=== PATIENT | female | born 1965 | race Caucasian/White ===

== ENCOUNTER 2019-03-09 20:26 | Inpatient (IN) | payer MEDICAID ==
[~2019-03-09] VITALS: Ht 160 cm; Wt 101.7 kg
--- NOTE | 2019-03-09 20:44 | PHYS DOC ---
Past Medical History Past Medical History: Diabetes-Type II, Hypertension, Hypothyroid, Other Additional Past Medical Histor: LUPUS, PTSD Past Surgical History: , Hysterectomy, Other Additional Past Surgical Histo: LUMPECTOMY, PORTS Alcohol Use: Occasionally Drug Use: None Adult General HPI HPI Patient is a 53 year old female who presents with chest pain that started in 1900 the mid chest and radiates to the back. Patient states she also feels some pain in the left arm that goes down to the elbow. She's had 324 of aspirin and took one nitroglycerin with no relief. Patient states that nitroglycerin does not work on her anyway. Patient states she's also nausea needed. She states that earlier today she had exertional shortness of air but not currently short of air sitting in the bed. Patient rates her pain 8 out of 10. Patient has a history of for heart attacks, 7 stents, hypertension, high cholesterol, smoker but states that she has not smoked for 2 weeks, COPD, lupus, diabetes. Patient denies diaphoresis, headache, dizziness, visual changes, numbness or tingling, syncope, vomiting, diarrhea, fever, abdominal pain. Review of Systems Review of Systems Respiratory: Denies cough. Exertional shortness of breath [] Cardiovascular: Mid chest pain that radiates to the back GI: Denies abdominal pain. + nausea, denies vomiting, bloody stools or diarrhea [] All other systems were reviewed and found to be within normal limits, except as documented in this note. Current Medications Current Medications Current Medications Medications (Trade) Dose Ordered Sig/[facility] Start Time Stop Time Status Last Admin Dose Admin Morphine Sulfate (Morphine Sulfate) 4 mg 1X ONCE 03/09/19 22:00 03/09/19 22:01 DC 03/09/19 22:12 4 MG Ondansetron HCl (Zofran Odt) 4 mg 1X ONCE 03/09/19 22:00 03/09/19 22:01 DC 03/09/19 22:11 4 MG Ondansetron HCl (Zofran) 4 mg 1X ONCE 03/09/19 20:45 03/09/19 21:50 DC Allergies Allergies Allergies Coded Allergies Type Severity Reaction Last Updated Verified Tetracyclines Allergy Intermediate 10/01/13 No ketorolac Allergy Intermediate 10/01/13 No tramadol Allergy Intermediate 10/01/13 No Physical Exam Physical Exam Constitutional: Well developed, well nourished, no acute distress, non-toxic appearance. [] HENT: Normocephalic, atraumatic, bilateral external ears normal, oropharynx moist, no oral exudates, nose normal. [] Eyes: PERRLA, EOMI, conjunctiva normal, no discharge. [] Neck: Normal range of motion, no tenderness, supple, no stridor. [] Cardiovascular:Heart rate regular tachy rhythm, no murmur [] Lungs & Thorax: Bilateral upper breath sounds clear and lower diminished to auscultation [] Abdomen: Bowel sounds normal, soft, no tenderness, no masses, no pulsatile masses. [] Skin: Warm, dry, no erythema, no rash. [] Back: No tenderness, no CVA tenderness. [] Extremities: No tenderness, no cyanosis, no clubbing, ROM intact, no edema. [] Neurologic: Alert and oriented X 3, normal motor function, normal sensory function, no focal deficits noted. [] Psychologic: Affect normal, judgement normal, mood normal. [] Current Patient Data Vital Signs Vital Signs Date Time Temp Pulse Resp B/P (MAP) Pulse Ox O2 Delivery O2 Flow Rate FiO2 03/09/19 22:12 20 99 Room Air 03/09/19 20:30 97.3 84 143/94 (110) 97.3 Lab Values Laboratory Tests Test 03/09/19 20:55 White Blood Count 8.9 x10^3/uL (4.0-11.0) Red Blood Count 4.46 x10^6/uL (3.50-5.40) Hemoglobin 14.8 g/dL (12.0-15.5) Hematocrit 43.5 % (36.0-47.0) Mean Corpuscular Volume 98 fL (79-100) Mean Corpuscular Hemoglobin 33 pg (25-35) Mean Corpuscular Hemoglobin Concent 34 g/dL (31-37) Red Cell Distribution Width 14.8 % (11.5-14.5) H Platelet Count 151 x10^3/uL (140-400) Neutrophils (%) (Auto) 79 % (31-73) H Lymphocytes (%) (Auto) 15 % (24-48) L Monocytes (%) (Auto) 5 % (0-9) Eosinophils (%) (Auto) 1 % (0-3) Basophils (%) (Auto) 0 % (0-3) Neutrophils # (Auto) 7.1 x10^3/uL (1.8-7.7) Lymphocytes # (Auto) 1.4 x10^3/uL (1.0-4.8) Monocytes # (Auto) 0.4 x10^3/uL (0.0-1.1) Eosinophils # (Auto) 0.0 x10^3/uL (0.0-0.7) Basophils # (Auto) 0.0 x10^3/uL (0.0-0.2) Prothrombin Time 12.8 SEC (11.7-14.0) Prothrombin Time INR 1.0 (0.8-1.1) Sodium Level 138 mmol/L (136-145) Potassium Level 4.6 mmol/L (3.5-5.1) Chloride Level 102 mmol/L (98-107) Carbon Dioxide Level 25 mmol/L (21-32) Anion Gap 11 (6-14) Blood Urea Nitrogen 11 mg/dL (7-20) Creatinine 1.0 mg/dL (0.6-1.0) Estimated GFR (Cockcroft-Gault) 57.6 BUN/Creatinine Ratio 11 (6-20) Glucose Level 358 mg/dL (70-99) H Calcium Level 10.1 mg/dL (8.5-10.1) Total Bilirubin 0.6 mg/dL (0.2-1.0) Aspartate Amino Transferase (AST) 70 U/L (15-37) H Alanine Aminotransferase (ALT) 77 U/L (14-59) H Alkaline Phosphatase 159 U/L (46-116) H Troponin I Quantitative < 0.017 ng/mL (0.000-0.055) LH-Nru-A-Type Natriuretic Peptide 195 pg/mL (0-124) H Total Protein 7.5 g/dL (6.4-8.2) Albumin 3.6 g/dL (3.4-5.0) Albumin/Globulin Ratio 0.9 (1.0-1.7) L Laboratory Tests 03/09/19 20:55 Laboratory Tests 03/09/19 20:55 EKG EKG Sinus tach without STEMI[] Interpretation Time: [address] Arriola Radiology/Procedures Radiology/Procedures [] Impressions: [facility] [address] [place] [address] IMAGING REPORT Signed PATIENT: DOMINICK HURLEY ACCOUNT: [id number] : 1965 LOCATION: ER AGE: 53 SEX: F EXAM STATUS: PRE ER ORD. PHYSICIAN: DEWEY SAUCEDO APRN REASON: chest pain PROCEDURE: CHEST PA & LATERAL CHEST PA LATERAL History: Chest pain Comparison: None. Findings: No consolidation or pleural effusion. Normal heart size. No pneumothorax. Calcified right lower lung nodule, likely prior granulomatous disease. Impression: 1. No acute cardiopulmonary process. Electronically signed by: Chasidy Dunaway DO (03/09/2019 9:24 PM) [facility] DICTATED and SIGNED BY: CHASIDY DUNAWAY DO DATE: 03/09/192123 Course & Med Decision Making Course & Med Decision Making Alert and oriented. Speaks in full clear sentences. Skin pink warm and dry. EKG shows sinus tachycardia without STEMI. Abdomen soft and nontender. PERRLA. Lungs are clear in all sensation in all upper lobes but diminished in lower lobes. No extremity edema. Chest pain is not reproducible with palpation. Due tothe patients hx she will be admitted to the hospital. I have spoken to Dr Meade for admission. Dragon Disclaimer Dragon Disclaimer This electronic medical record was generated, in whole or in part, using a voice recognition dictation system. The HEART Score for CP Pts HEART Score for Chest Pain: HEART Score for Chest Pain Response (Comments) Value History Moderately Suspicious 1 ECG Normal 0 Age >45 - < 65 1 Risk Factors >3 Risk Factors or Hx CAD 2 Troponin < Normal Limit 0 Total 4 Risk Factors: Risk Factors: DM, Current or recent (<one month) smoker, HTN, HLP, family history of CAD, obesity. Risk Scores: Score 0 - 3: 2.5% MACE over next 6 weeks - Discharge Home Score 4 - 6: 20.3% MACE over next 6 weeks - Admit for Clinical Observation Score 7 - 10: 72.7% MACE over next 6 weeks - Early Invasive Strategies Departure Departure Impression: Primary Impression: Chest pain Disposition: ADMITTED INPATIENT Admitting Physician: HIMS Condition: STABLE Referrals: NO PCP (PCP) Problem Qualifiers Primary Impression: Chest pain Chest pain type: unspecified Qualified Codes: R07.9 - Chest pain, unspecified DEWEY SAUCEDO ASSISTANT TRACK COACH Mar 09, 2019 20:44
[2019-03-09] MEDS ORDERED: ONDANSETRON PF 4 MG/2 ML VIAL. IVP ONE (20:45)
[2019-03-09] MEDS ORDERED: MORPHINE SULFATE 2 MG/ML VIAL. IV ONE (20:45)
[2019-03-09 21:05] LABS: BASO % 0 % (0-3); EOS % 1 % (0-3); HEMATOCRIT 43.5 % (36.0-47.0); HEMOGLOBIN 14.8 g/dL (12.0-15.5); LYMPH # 1.4 x10^3/uL (1.0-4.8); LYMPH % 15 % (24-48); MEAN CORPUSCULAR HEMOGLOBIN 33 pg (25-35); MEAN CORPUSCULAR HGB CONC 34 g/dL (31-37); MEAN CORPUSCULAR VOLUME 98 fL (79-100); MONO # 0.4 x10^3/uL (0.0-1.1); MONO % 5 % (0-9); NEUT # 7.1 x10^3/uL (1.8-7.7); NEUT % 79 % (31-73); PLATELET COUNT 151 x10^3/uL (140-400); RED BLOOD COUNT 4.46 x10^6/uL (3.50-5.40); RED CELL DISTRIBUTION WIDTH 14.8 % (11.5-14.5); WHITE BLOOD COUNT 8.9 x10^3/uL (4.0-11.0)
[2019-03-09 21:14] LABS: CALCIUM 10.1 mg/dL (8.5-10.1); GFR 57.6; POTASSIUM 4.6 mmol/L (3.5-5.1); PROTHROMBIN TIME PATIENT 12.8 SEC (11.7-14.0)
[2019-03-09 21:20] LABS: ALBUMIN 3.6 g/dL (3.4-5.0); ALBUMIN/GLOBULIN RATIO 0.9 (1.0-1.7); TOTAL BILIRUBIN 0.6 mg/dL (0.2-1.0); TOTAL PROTEIN 7.5 g/dL (6.4-8.2)
--- NOTE | 2019-03-09 21:27 | RAD ---
CHEST PA LATERAL History: Chest pain Comparison: None. Findings: No consolidation or pleural effusion. Normal heart size. No pneumothorax. Calcified right lower lung nodule, likely prior granulomatous disease. Impression: 1. No acute cardiopulmonary process. Electronically signed by: Nura Dunaway DO (03/09/2019 9:24 PM) [facility]
[2019-03-09] MEDS ORDERED: ONDANSETRON ODT 4 MG TAB.RAPDIS. PO ONE (22:00)
[2019-03-09] MEDS ORDERED: MORPHINE SULFATE 4 MG/ML VIAL. IM ONE (22:00)
[2019-03-09] MEDS ORDERED: ONDANSETRON PF 4 MG/2 ML VIAL. IV PRN (22:30)
[2019-03-09 22:32] LABS: BILIRUBIN,URINE NEGATIVE (NEG); CLARITY,URINE CLEAR; COLOR,URINE YELLOW; NITRITE,URINE NEGATIVE (NEG); PROTEIN,URINE NEGATIVE (NEG-TRACE)
[2019-03-09 22:37] LABS: AMPHETAMINE/METHAMPHETAMINE NEG (NEG); BARBITURATES NEG (NEG); BENZODIAZEPINES NEG (NEG); CANNABINOIDS NEG (NEG); COCAINE NEG (NEG); METHADONE NEG (NEG); OPIATES NEG (NEG); PHENCYCLIDINE NEG (NEG)
[2019-03-09 22:41] LABS: BACTERIA,URINE 0 /HPF (0-FEW); RBC,URINE 0 /HPF (0-2); SQUAMOUS EPITHELIAL CELL,UR FEW /LPF
[2019-03-10] VITALS (7 sets, daily range): BP systolic 121–146; BP diastolic 54–85
--- NOTE | 2019-03-10 01:00 | NUR ---
Admit from ED to [facility] room 262 via [facility]. A/O x 4 on arrival. Very Talkative. Ambulated from [facility] [place] to bed in room independently. Reviewed history with patient. Patient reports chest pain while shopping at [employer]. Orientated to room and call light. Reviewed POC to include lab draws such as troponin and tele monitoring. Verbalized understanding. Patient resting in bed with call light at hand.
[2019-03-10] MEDS: fentaNYL PF VIAL 100 MCG/2 ML VIAL IV PRN ×4 (01:18→12:16)
[2019-03-10] MEDS ORDERED: LIRA0.6P SQ (01:43)
[2019-03-10] MEDS ORDERED: SIMV80TA17 PO (01:43)
[2019-03-10] MEDS ORDERED: INSU100I35 SQ (01:43)
[2019-03-10] MEDS ORDERED: OXYC5TAB2 PO (01:43)
[2019-03-10] MEDS ORDERED: CLOP75TA57 PO (01:43)
[2019-03-10] MEDS ORDERED: METH750T2 PO (01:43)
[2019-03-10] MEDS ORDERED: ISOS30TA4 PO (01:43)
[2019-03-10] MEDS ORDERED: GABA300C9 PO (01:43)
[2019-03-10] MEDS ORDERED: METF10007 PO (01:43)
[2019-03-10] MEDS ORDERED: LEVO125T5 PO (01:43)
[2019-03-10] MEDS ORDERED: FURO20TA3 PO (01:43)
[2019-03-10] MEDS ORDERED: METO75TA PO (01:43)
[2019-03-10] MEDS ORDERED: DABI150C PO (01:43)
[2019-03-10] MEDS ORDERED: FLUT1DIS3 INH (01:43)
[2019-03-10] MEDS ORDERED: ESOM40CA47 PO (01:43)
[2019-03-10] MEDS ORDERED: INSU100V8 SQ (01:43)
[2019-03-10] MEDS ORDERED: DULO60CA6 PO (01:43)
[2019-03-10] MEDS ORDERED: AMLO5TAB10 PO (01:43)
[2019-03-10] MEDS ORDERED: NITR0.4T22 SL (01:43)
[2019-03-10] MEDS ORDERED: IV DEXTROSE 5% 250 ML BAG. IV PRN (02:30)
[2019-03-10] MEDS ORDERED: DEXTROSE 50% 25 GM / 50ML DISP.SYRIN. IV PRN (02:30)
--- NOTE | 2019-03-10 07:06 | EKG ---
[facility] [address] [place] [address] Test Date: 2019-03-09 Test Time: 20:25:30 Pat Name: DOMINICK HURLEY Department: Room: Gender: F Mammography Supervisor: : 1965 Requested By: DEWEY SAUCEDO Order Number: [id number] Reading MD: Measurements Intervals [place] Rate: 130 P: IL: QRS: 126 QRSD: 116 T: 18 QT: 306 QTc: 457 Interpretive Statements SINUS TACHYCARDIA VENTRICULAR PREMATURE COMPLEX(ES) R-S TRANSITION ZONE IN V LEADS DISPLACED TO THE LEFT INCOMPLETE RIGHT BUNDLE BRANCH BLOCK RVH WITH REPOLARIZATION ABNORMALITY QRS(T) CONTOUR ABNORMALITY CONSIDER ANTEROSEPTAL MYOCARDIAL DAMAGE CONSISTENT WITH INFERIOR INFARCT PROBABLY OLD ABNORMAL ECG RI6.01 No previous ECG available for comparison
--- NOTE | 2019-03-10 08:44 | PDOC2 ---
CARDIAC CONSULT DATE OF CONSULT Date of Consult DATE: 03/10/19 TIME: 08:42 REASON FOR CONSULT Reason for Consult: chest pain, hx of ND REFERRING PHYSICIAN Referring Physician: Kiersten SOURCE Source: Chart review, Patient HISTORY OF PRESENT ILLNESS HISTORY OF PRESENT ILLNESS This is a pleasant 53 yo female admitted for complains of chest pain. Reports that she started having this left chest tightness the other day that goes to her left shoulder and arm. She took NTG and ASA and it just keeps on coming back. Some nausea but no vomiting. Also had some SOA but nothing significant. She had multiple additional stents placed last yr and typically sees [facility] cardiology. She is convinced that this her heart and not anything else and blaming it on her lupus. She smokes tobacco and quit about 2 weeks ago. She has been complaint with her medications including pradaxa and plavix together. PAST MEDICAL HISTORY Cardiovascular: CAD, CHF (ICM with EF at 30% in the past 03/15/2015 and recovered), HTN, Hyperlipidemia, Other (chronic stable angina) Pulmonary: Asthma, Pulmonary embolus CENTRAL NERVOUS SYSTEM: CVA GI: GERD, Peptic Ulcer disease Heme/Onc: Cancer (breast), Other (SLE; chronic anticoagulation) Musculoskeletal: Osteoarthritis Endocrine: Diabetes (2), Hypothyroidism PAST SURGICAL HISTORY Past Surgical History: Mastectomy (lumpectomy), Other (stent to RCA 03/14/2015 and 03/16/2015, 11/2015 mil disease to LAD and moderate disease to LCx, multiple [facility] last [facility] 08/2017 with diffuse mil to mod CAD with patent stents to RCA; IVC filter; Stent placed in 03/2018 and 10/[address] [facility]) FAMILY HISTORY Family History: Coronary Artery Disease SOCIAL HISTORY Smoke: <1 pack per day ALCOHOL: none Drugs: None Lives: with Family CURRENT MEDICATIONS CURRENT MEDICATIONS Current Medications Medications (Trade) Dose Ordered Sig/Alida Route PRN Reason Start Time Stop Time Status Last Admin Dose Admin Morphine Sulfate (Morphine Sulfate) 4 mg 1X ONCE IM 03/09/19 22:00 03/09/19 22:01 DC 03/09/19 22:12 Ondansetron HCl (Zofran Odt) 4 mg 1X ONCE PO 03/09/19 22:00 03/09/19 22:01 DC 03/09/19 22:11 Fentanyl Citrate (Fentanyl 2ml Vial) 50 mcg PRN Q1HR PRN IV PAIN 03/09/19 22:30 03/10/19 22:29 03/10/19 07:42 ALLERGIES ALLERGIES: Coded Allergies: Tetracyclines (Unverified Allergy, Intermediate, 10/01/13) ketorolac (Unverified Allergy, Intermediate, 10/01/13) tramadol (Unverified Allergy, Intermediate, 10/01/13) ROS Review of System 14 point ROS evaluated with pertinent positives noted per HPI PHYSICAL EXAM General: Alert, Oriented X3, Cooperative, No acute distress HEENT: Atraumatic, Mucous membr. moist/pink Lungs: Clear to auscultation, Normal air movement Heart: Regular rate (SR), Normal S1, Normal S2, No murmurs Abdomen: Soft, No tenderness Extremities: No cyanosis, No edema Skin: No breakdown, No significant lesion Neuro: Normal speech, Sensation intact Psych/Mental Status: Mental status NL, Mood NL MUSCULOSKELETAL: Osteoarthritic changes both hands VITALS/I&O VITALS/I&O: Vital Signs Date Time Temp Pulse Resp B/P (MAP) Pulse Ox O2 Delivery O2 Flow Rate FiO2 03/10/19 03:20 98.1 77 18 121/54 (76) 98 Room Air 98.1 I & O 03/09/19 03/09/19 03/10/19 15:00 23:00 07:00 Intake Total 400 ml Balance 400 ml LABS Lab: Laboratory Tests Test 03/09/19 20:55 03/09/19 22:20 03/10/19 01:25 03/10/19 08:00 White Blood Count 8.9 x10^3/uL (4.0-11.0) Red Blood Count 4.46 x10^6/uL (3.50-5.40) Hemoglobin 14.8 g/dL (12.0-15.5) Hematocrit 43.5 % (36.0-47.0) Mean Corpuscular Volume 98 fL (79-100) Mean Corpuscular Hemoglobin 33 pg (25-35) Mean Corpuscular Hemoglobin Concent 34 g/dL (31-37) Red Cell Distribution Width 14.8 % (11.5-14.5) H Platelet Count 151 x10^3/uL (140-400) Neutrophils (%) (Auto) 79 % (31-73) H Lymphocytes (%) (Auto) 15 % (24-48) L Monocytes (%) (Auto) 5 % (0-9) Eosinophils (%) (Auto) 1 % (0-3) Basophils (%) (Auto) 0 % (0-3) Neutrophils # (Auto) 7.1 x10^3/uL (1.8-7.7) Lymphocytes # (Auto) 1.4 x10^3/uL (1.0-4.8) Monocytes # (Auto) 0.4 x10^3/uL (0.0-1.1) Eosinophils # (Auto) 0.0 x10^3/uL (0.0-0.7) Basophils # (Auto) 0.0 x10^3/uL (0.0-0.2) Prothrombin Time 12.8 SEC (11.7-14.0) Prothrombin Time INR 1.0 (0.8-1.1) Sodium Level 138 mmol/L (136-145) Potassium Level 4.6 mmol/L (3.5-5.1) Chloride Level 102 mmol/L (98-107) Carbon Dioxide Level 25 mmol/L (21-32) Anion Gap 11 (6-14) Blood Urea Nitrogen 11 mg/dL (7-20) Creatinine 1.0 mg/dL (0.6-1.0) Estimated GFR (Cockcroft-Gault) 57.6 BUN/Creatinine Ratio 11 (6-20) Glucose Level 358 mg/dL (70-99) H Calcium Level 10.1 mg/dL (8.5-10.1) Total Bilirubin 0.6 mg/dL (0.2-1.0) Aspartate Amino Transferase (AST) 70 U/L (15-37) H Alanine Aminotransferase (ALT) 77 U/L (14-59) H Alkaline Phosphatase 159 U/L (46-116) H Troponin I Quantitative < 0.017 ng/mL (0.000-0.055) < 0.017 ng/mL (0.000-0.055) JU-Zof-X-Type Natriuretic Peptide 195 pg/mL (0-124) H Total Protein 7.5 g/dL (6.4-8.2) Albumin 3.6 g/dL (3.4-5.0) Albumin/Globulin Ratio 0.9 (1.0-1.7) L Urine Collection Type Void Urine Color Yellow Urine Clarity Clear Urine pH 5.0 Urine Specific [place] >=1.030 Urine Protein Negative mg/dL (NEG-TRACE) Urine Glucose (UA) >=1000 mg/dL (NEG) Urine Ketones (Stick) Trace mg/dL (NEG) Urine Blood Negative (NEG) Urine Nitrite Negative (NEG) Urine Bilirubin Negative (NEG) Urine Urobilinogen Dipstick 1.0 mg/dL (0.2 mg/dL) Urine Leukocyte Esterase Negative (NEG) Urine RBC 0 /HPF (0-2) Urine WBC 1-4 /HPF (0-4) Urine Squamous Epithelial Cells Few /LPF Urine Bacteria 0 /HPF (0-FEW) Urine Mucus Mod /LPF Urine Opiates Screen Neg (NEG) Urine Methadone Screen Neg (NEG) Urine Barbiturates Neg (NEG) Urine Phencyclidine Screen Neg (NEG) Urine Amphetamine/Methamphetamine Neg (NEG) Urine Benzodiazepines Screen Neg (NEG) Urine Cocaine Screen Neg (NEG) Urine Cannabinoids Screen Neg (NEG) Urine Ethyl Alcohol Neg (NEG) Glucose (Fingerstick) 266 mg/dL (70-99) H Laboratory Tests 03/09/19 20:55 Laboratory Tests 03/09/19 20:55 ECHOCARDIOGRAM ECHOCARDIOGRAM [facility] 11/21/2016 Normal LV size with mild concentric LVH and normal systolic function, EF ~ 60%. Diastolic function not assessed No regional wall motion abnormalities Normal RV size and qualitative function Normal atria sizes bilaterally Aortic sclerosis and mild mitral annular calcification without 2D evidence of stenosis. Regurgitation not assessed Right sided valves were not well visualized Trivial pericardial effusion without hemodynamic effects STRESS TEST STRESS TEST 11/01/2017 SUMMARY/OPINION: This study is probably normal. There are changes consistent with soft tissue attenuation, a definite ischemic change was not appreciated.L eft ventricular systolic function is normal, the ejection fraction was 73%.. There are no high risk prognostic indicators present. The pulmonary to myocardial to count ratio was 0.22, there is no transient ischemic dilatation noted. The ECG portion of the study is negative for ischemia. The study was compared to a myocardial perfusion study obtained in our office on 07/26/2016, showed an EF of 84%, EDV was 68mL, pulmonary myocardial count ratio was 0.38, there is no transient ischemic dilatation noted. There is some shifting artifact noted on the prior study as well, there is no definite ische talib. In comparing the two studies qualitatively, overall the perfusion pattern appears similar, suggesting no significant interval change. In aggregate the current study is low risk in regards to predicted annual cardiovascular mortality rate. ASSESSMENT/PLAN ASSESSMENT/PLAN 1. Chest pain: mixed features 2. CAD: multiple stents with last one 10/[address] [facility] 3. HTN 4. DM2/HLP: will need better BG control 5. Morbid obesity 6. Tobaccoism: quit 2 weeks ago 7. Hx of PUD 8. Hx of PE/CVA with lupus 9. Hypothyroidism Recommendations 1. MPI today and if unremarkable then may DC. Follow up with [facility] cardiology 2. Continue home plavix and pradaxa and secondary prevention measures. Continue Imdur 3. Wt loss, smoking cessation CHARISSE MARTIN BUSINESS OBJECTS REPORT DEVELOPER Mar 10, 2019 08:44
[2019-03-10] MEDS: INSULIN LISPRO 300 UNITS/3 ML VIAL. SQ SCH ×3 (09:10→17:52)
[2019-03-10] MEDS ORDERED: REGADENOSON 0.4 MG/5 ML DISP.SYRIN. IV ONE (10:15)
[2019-03-10] MEDS: DABIGATRAN ETEXILATE 150 MG CAPSULE. PO SCH ×2 (11:11→20:57)
[2019-03-10] MEDS: DULoxetine HCL 30 MG CAPSULE.DR PO SCH (11:11)
[2019-03-10] MEDS: CLOPIDOGREL BISULFATE 75 MG TABLET PO SCH (11:11)
[2019-03-10] MEDS: ISOSORBIDE MONONITRATE ER 30 MG TAB.ER.24H PO SCH (11:11)
[2019-03-10] MEDS: PANTOPRAZOLE 40 MG TABLET.DR. PO SCH ×2 (11:11→16:48)
[2019-03-10] MEDS: LEVOTHYROXINE 125 MCG TABLET PO SCH (11:11)
[2019-03-10] MEDS: oxyCODONE IR 5 MG TABLET PO PRN (11:12)
[2019-03-10] MEDS: metFORMIN 500 MG TABLET PO SCH ×2 (11:12→16:48)
[2019-03-10] MEDS: FUROSEMIDE 20 MG TABLET PO SCH ×2 (11:12→14:26)
[2019-03-10] MEDS: amLODIPine BESYLATE 5 MG TABLET PO SCH (11:12)
[2019-03-10] MEDS: GABAPENTIN 300 MG CAPSULE. PO SCH (11:13)
[2019-03-10] MEDS: METOPROLOL TART IMMED RELEASE 25 MG TABLET. PO SCH (11:13)
--- NOTE | 2019-03-10 11:20 | NUR ---
SS following for discharge planning. SS reviewed pt chart. Pt is from home and is currently on room air. SS will continue to follow for discharge planning.
[2019-03-10] MEDS: ALBUTEROL SULFATE 2.5 MG/3 ML NEBU. NEB SCH ×3 (11:33→20:45)
[2019-03-10] MEDS: BUDESONIDE 0.5 MG/2 ML NEBU. NEB SCH ×2 (11:33→20:45)
--- NOTE | 2019-03-10 11:40 | HP ---
ADMIT DATE: 03/09/2019 CHIEF COMPLAINT: Chest pain. HISTORY OF PRESENT ILLNESS: The patient is a pleasant middle-aged female who states she has had 7 previous cardiac stents and 4 prior heart attacks. She also has heart failure with an ejection fraction of 30%. She presented to the ER with chest pain, rated as 7/10. She has associated nausea. It has been occurring off and on for a couple of days. States the pain is pressure like, described as agonizing, it is intermittent. She took some extra home meds, but that did not seem to help, sitting still makes it better, moving makes it worse. I discussed the case with ER physician. It appears her troponin is negative, but since she has such a strong history of coronary artery disease and previous 7 stents, we are going to admit the patient and consult Cardiology. PAST MEDICAL HISTORY: Previous coronary stents x 7, CHF with 30% ejection fraction, hypertension, hyperlipidemia, asthma Pulmonary embolus, GERD, peptic ulcer disease, osteoarthritis, diabetes, hypothyroidism and breast cancer. ALLERGIES: TETRACYCLINE AND ULTRAM AND TORADOL. FAMILY HISTORY: Coronary artery disease. SOCIAL HISTORY: She does not drink or take drugs. She is actually smokes less than a pack per day. MEDICATIONS: Reviewed, please refer to the MRAD. REVIEW OF SYSTEMS: GENERAL: No history of weight change, weakness or fevers. SKIN: No bruising, hair changes or rashes. EYES: No blurred, double or loss of vision. NOSE AND THROAT: No history of nosebleeds, hoarseness or sore throat. HEART: She complains of chest pain. LUNGS: Denies cough, hemoptysis, wheezing or shortness of breath. GASTROINTESTINAL: Denies changes in appetite, nausea, vomiting, diarrhea or constipation. GENITOURINARY: No history of frequency, urgency, hesitancy or nocturia. NEUROLOGIC: Denies history of numbness, tingling, tremor or weakness. PSYCHIATRIC: No history of panic, anxiety or depression. ENDOCRINE: No history of heat or cold intolerance, polyuria or polydipsia. EXTREMITIES: Denies muscle weakness, joint pain, pain on walking or stiffness. PHYSICAL EXAMINATION: VITALS: Within normal limits and are stable. GENERAL: No apparent distress. Alert and oriented. HEENT: Normal cephalic atraumatic, external auditory canals are patent. Eyes: Extraocular muscles are intact, pupils are equally round and reactive to light and accommodation. MUSKULOSKELETAL: Well developed, well nourished, good range of motion. ENDOCRINE: No thyromegaly was palpated. LYMPHATICS: No cervical chain or axillary nodes were noted. HEMATOPOIETIC: No bruising. NECK: Supple, no JVD, no thyromegaly was noted. LUNGS: Clear to auscultation in all lung feliz without rhonchi or wheezing. HEART: RRR, S1, S2 present. Peripheral pulses intact, no obvious murmurs were noted. ABDOMEN: Soft, nontender. Positive bowel sounds no organomegaly, normal bowel sounds. EXTREMITIES: Without any cyanosis, clubbing, or edema. Pedal pulses intact, Homans sign is negative. NEUROLOGIC: Normal speech, normal tone. A and O x 3, moves all extremities, no obvious focal deficits. PSYCHIATRIC: Normal affect, normal mood. Stable. SKIN: No ulcerations or rashes, good skin turgor, no jaundice. VASCULAR: Good capillary refill, neurovascular bundle appears to be intact. LABORATORY DATA AND IMAGING: Chest x-ray, negative. EKG shows sinus rhythm. Troponin is 0. ASSESSMENT AND PLAN: Chest pain in a middle-aged female who has known coronary artery disease and previous stents x 7. The patient has been admitted. We will do cardiac monitoring, serial enzymes, serial EKGs, echocardiogram, consult Cardiology. Home meds, deep venous thrombosis prophylaxis. Full code. P.r.n. nitroglycerin, p.r.n. morphine. KRIS HERNÁNDEZ DO DR: REYMUNDO/amarilis JOB#: [id number] / [id number]
[2019-03-10] MEDS: INSULIN GLARGINE SYRINGE. SQ SCH ×2 (11:57→21:01)
--- NOTE | 2019-03-10 12:53 | RAD ---
MR#: [id number] Date of Study: 03/10/2019 Ordering Physician: CHARISSE MARTIN, Referring Physician: FELICIANO COLE Tech: ESTELLA Perdomo, ARRT (R) (N) APPROVED REPORT Test Type: Pharmacological Stress Nurse/Tech: YAKELIN Patino Test Indications: chest pain Cardiac History: chest pain, SD w/stents , See Electronic Medical Record Medications: See Electronic Medical Record Medical History: lupus, DM, HTN, smoker See Electronic Medical Record Resting ECG: SR Resting Heart Rate: 93 bpm Resting Blood Pressure: 134/60mmHg Pretest Chest Pain: No chest pain Nurse/Tech Notes S1S2, lungs CTA, denied CP/SOA Consent: The procedure was explained to the patient in lay terms. Informed consent was witnessed. Bahman eout was entered into [employer]. History and Stress Test performed by RT Vivian Kearns) (N) Pharm. Details Pharmacologic stress testing was performed using 0.4mg per 5ml of regadenoson given intravenously ove r 7-10 seconds. Stress Symptoms Pt talked through the entire test, denied chest pain or SOA. POST EXERCISE Reason for Termination: Infusion complete Max HR: 99 bpm Max Blood Pressure: 166/72mmHg Blood Pressure response to exercise: Normal blood pressure response during stress. Heart Rate response to exercise: Normal heart rate response during stress Chest Pain: No. Arrhythmia: No. ST Change: No. INTERPRETATION Stress EKG Conclusion: No evidence of stress induced EKG changes. Imaging Protocol IMAGE PROTOCOL: Rest Tc-99m/stress Tc-99m 2 days Rest: Stress: Viability: Radiopharm.Tc99m Sestamibi [id number] Img Date 03/10/2019 Inj-Img [id number]. Stress Admin Site: rt breastAdministrator: RT Urmila (Cortney)(N) STRESS DATA End Diast. Vol.50.0mlAv. Heart Rate65.0bpm End Syst. Vol.17.0mlCO Index BSA0.0L/min Myocardial Suwy143.0gEject. Lcuenwgc52.0% Stress Rates Pk. Fill Rate1.95EDV/secLVtime Pk. Fill 167.45msec Pk. Empty Rate3.16ESV/secLVtime Pk. Brqnx114.22msec / Pk. Fill1.12EDV/sec Stress Scores Regional WT1.00Summed WT5.00 Regional WM2.00Summed WM12.00 LV Perfusion Normal perfusion at stress Wall Motion Normal wall motion with stress. LV Perf. Quant 17 Seg. SSS0.00 Stress Defect Extent (% LAD)0.00Rest Defect Extent (% LAD)Rev. Defect Extent (% LAD)0.00 Stress Defect Extent (% LCX) 0.00Rest Defect Extent (% LCX)Rev. Defect Extent (% LCX)0.00 Stress Defect Extent (% RCA)0.00Rest Defect Extent (% RCA)Rev. Defect Extent (% RCA)0.00 Stress Defect Extent (% LUIGI)0.00Rest Defect Extent (% LUIGI)Rev. Defect Extent (% LUIGI)0.00 Other Information Quality:Fair Risk Assessment: Low Risk Conclusion 1. No evidence of EKG changes with stress testing. 2. Normal perfusion at stress. 3. Low risk study. 4. EF > 60%. Signed by : Steve Gudino, Electronically Approved : 03/10/2019 12:53:26
[2019-03-10] MEDS: METHOCARBAMOL 750 MG TABLET PO SCH ×2 (14:26→20:57)
[2019-03-10] MEDS: MORPHINE SULFATE 2 MG/ML VIAL. IV PRN ×4 (15:25→23:51)
--- NOTE | 2019-03-10 19:21 | RAD ---
ABDOMEN LTD History: Abdominal pain. Evaluate for gallstones. Comparison: CT July 14, 2014. Technique: Transabdominal ultrasound images are obtained of the right upper quadrant. Findings: Visualized pancreas is not well seen due to overlying bowel gas. Liver is increased in echogenicity. Right hepatic lobe measures 16.9 cm. Portal flow is hepatopedal. The bladder sludge. No cholelithiasis. No gallbladder wall thickening. No pericholecystic fluid. Common bile duct measures 4 mm in diameter. The right kidney measures 9.2 x 4.4 x 4.2 cm. No hydronephrosis. Visualized portions of the aorta and IVC have normal caliber. IMPRESSION: 1. Gallbladder sludge. 2. Increased hepatic echotexture, may indicate steatosis. Electronically signed by: Nura Dunaway DO (03/10/2019 7:17 PM) [facility]
[2019-03-10] MEDS ORDERED: FLUTICASONE INH SCH (21:00)
[2019-03-10] MEDS ORDERED: SALMETEROL INH SCH (21:00)
[2019-03-10] MEDS ORDERED: ATORVASTATIN CALCIUM 40 MG TABLET. PO SCH (21:00)
[2019-03-11 03:10] VITALS: BP 136/63
[2019-03-11] MEDS: MORPHINE SULFATE 2 MG/ML VIAL. IV PRN ×3 (03:25→10:27)
[2019-03-11] MEDS ORDERED: ONDANSETRON PF 4 MG/2 ML VIAL. IVP PRN (06:00)
[2019-03-11] MEDS: PANTOPRAZOLE 40 MG TABLET.DR. PO SCH ×2 (06:01→17:16)
[2019-03-11] MEDS: LEVOTHYROXINE 125 MCG TABLET PO SCH (06:01)
[2019-03-11 07:00] VITALS: BP 143/72
[2019-03-11] MEDS: BUDESONIDE 0.5 MG/2 ML NEBU. NEB SCH (07:36)
[2019-03-11] MEDS: ALBUTEROL SULFATE 2.5 MG/3 ML NEBU. NEB SCH ×3 (07:36→15:33)
[2019-03-11] MEDS ORDERED: ANTI-COAG MONITOR BY PHARMACY. MC PRN (08:15)
[2019-03-11] MEDS: DULoxetine HCL 30 MG CAPSULE.DR PO SCH (08:40)
[2019-03-11] MEDS: METHOCARBAMOL 750 MG TABLET PO SCH ×2 (08:40→14:52)
[2019-03-11] MEDS: FUROSEMIDE 20 MG TABLET PO SCH ×2 (08:40→14:52)
[2019-03-11] MEDS: metFORMIN 500 MG TABLET PO SCH ×2 (08:40→17:16)
[2019-03-11] MEDS: DABIGATRAN ETEXILATE 150 MG CAPSULE. PO SCH (08:41)
[2019-03-11] MEDS: ISOSORBIDE MONONITRATE ER 30 MG TAB.ER.24H PO SCH (08:41)
[2019-03-11] MEDS: CLOPIDOGREL BISULFATE 75 MG TABLET PO SCH (08:42)
[2019-03-11] MEDS: METOPROLOL TART IMMED RELEASE 25 MG TABLET. PO SCH (08:42)
[2019-03-11] MEDS: GABAPENTIN 300 MG CAPSULE. PO SCH (08:43)
[2019-03-11] MEDS: oxyCODONE IR 5 MG TABLET PO PRN ×2 (08:43→14:53)
[2019-03-11] MEDS: amLODIPine BESYLATE 5 MG TABLET PO SCH (08:44)
[2019-03-11] MEDS: INSULIN LISPRO 300 UNITS/3 ML VIAL. SQ SCH ×3 (08:51→17:00)
[2019-03-11] MEDS: INSULIN GLARGINE SYRINGE. SQ SCH (08:52)
--- NOTE | 2019-03-11 10:16 | PDOC ---
PROGRESS NOTES History of Present Illness History of Present Illness DISCHARGE DX ANGINA in a middle-aged female who has known coronary artery disease and previous stents x 7. LOW RISK MPI Gallbladder sludge. by US WITH ruq pain, persistent Increased hepatic echotexture, may indicate steatosis. MORBID OBESITY admitted. cardiac monitoring, serial enzymes, serial EKGs, echocardiogram, consult Cardiology. Home meds, deep venous thrombosis prophylaxis. Full code. P.r.n. nitroglycerin, p.r.n. morphine. D/W RN MPI 03/10 // unremarkable //june DC. from cardiology standpoint see GEN SURGERY OUT PT KARLENE Vitals Vitals Vital Signs Date Time Temp Pulse Resp B/P (MAP) Pulse Ox O2 Delivery O2 Flow Rate FiO2 03/11/19 09:43 Room Air 03/11/19 08:44 77 143/72 03/11/19 07:00 97.7 20 100 97.7 Physical Exam General: Alert, Oriented X3, Cooperative, No acute distress Heart: Regular rate (SR), Normal S1, Normal S2, No murmurs Lungs: Clear Abdomen: Normal bowel sounds, Soft, No tenderness Extremities: No cyanosis, No edema Skin: No breakdown, No significant lesion Labs LABS ABDOMEN LTD History: Abdominal pain. Evaluate for gallstones. Comparison: CT July 14, 2014. Technique: Transabdominal ultrasound images are obtained of the right upper quadrant. Findings: Visualized pancreas is not well seen due to overlying bowel gas. Liver is increased in echogenicity. Right hepatic lobe measures 16.9 cm. Portal flow is hepatopedal. The bladder sludge. No cholelithiasis. No gallbladder wall thickening. No pericholecystic fluid. Common bile duct measures 4 mm in diameter. The right kidney measures 9.2 x 4.4 x 4.2 cm. No hydronephrosis. Visualized portions of the aorta and IVC have normal caliber. IMPRESSION: 1. Gallbladder sludge. 2. Increased hepatic echotexture, may indicate steatosis. Electronically signed by: Nura Dunaway DO (03/10/2019 7:17 PM) [facility] DICTATED and SIGNED BY: NURA DUNAWAY DO DATE: 03/10/19 1917 Rest: Stress: Viability: Radiopharm. Tc99m Sestamibi Dose 12mCi Img Date 03/10/2019 Inj-Img Time 45min. Stress Admin Site: rt breast Inspector Multifocal Lens: William Caceres, RT (R)(N) STRESS DATA End Diast. Vol. 50.0ml Av. Heart Rate 65.0bpm End Syst. Vol. 17.0ml CO Index BSA 0.0L/min Myocardial Mass 104.0g Eject. Fraction 66.0% Stress Rates Pk. Fill Rate 1.95EDV/sec LVtime Pk. Fill 167.45msec Pk. Empty Rate 3.16ESV/sec LVtime Pk. Eject 175.22msec 02/13 Pk. Fill 1.12EDV/sec Stress Scores Regional WT 1.00 Summed WT 5.00 Regional WM 2.00 Summed WM 12.00 LV Perfusion Normal perfusion at stress Wall Motion Normal wall motion with stress. LV Perf. Quant 17 Seg. SSS 0.00 Stress Defect Extent (% LAD) 0.00 Rest Defect Extent (% LAD) Rev. Defect Extent (% LAD) 0.00 Stress Defect Extent (% LCX) 0.00 Rest Defect Extent (% LCX) Rev. Defect Extent (% LCX) 0.00 Stress Defect Extent (% RCA) 0.00 Rest Defect Extent (% RCA) Rev. Defect Extent (% RCA) 0.00 Stress Defect Extent (% LUIGI) 0.00 Rest Defect Extent (% LUIGI) Rev. Defect Extent (% LUIGI) 0.00 Other Information Quality:Fair Risk Assessment: Low Risk Conclusion 1. No evidence of EKG changes with stress testing. 2. Normal perfusion at stress. 3. Low risk study. 4. EF > 60%. Signed by : Alejandro Gudino, Electronically Approved : 03/10/2019 12:53:26 DICTATED and SIGNED BY: ALEJANDRO GUDINO MD DATE: 03/10/19 1058 Laboratory Tests Test 03/10/19 10:59 03/10/19 16:58 03/10/19 20:34 03/11/19 07:42 Glucose (Fingerstick) 205 mg/dL (70-99) 278 mg/dL (70-99) 216 mg/dL (70-99) 227 mg/dL (70-99) Assessment and Plan Assessmemt and Plan Problems Medical Problems: (1) Chest pain Status: Acute Comment Review of Relevant I have reviewed the following items cristin (where applicable) has been applied. Labs Laboratory Tests Test 03/09/19 20:55 03/09/19 22:20 03/10/19 01:25 03/10/19 08:00 White Blood Count 8.9 x10^3/uL (4.0-11.0) Red Blood Count 4.46 x10^6/uL (3.50-5.40) Hemoglobin 14.8 g/dL (12.0-15.5) Hematocrit 43.5 % (36.0-47.0) Mean Corpuscular Volume 98 fL (79-100) Mean Corpuscular Hemoglobin 33 pg (25-35) Mean Corpuscular Hemoglobin Concent 34 g/dL (31-37) Red Cell Distribution Width 14.8 % (11.5-14.5) Platelet Count 151 x10^3/uL (140-400) Neutrophils (%) (Auto) 79 % (31-73) Lymphocytes (%) (Auto) 15 % (24-48) Monocytes (%) (Auto) 5 % (0-9) Eosinophils (%) (Auto) 1 % (0-3) Basophils (%) (Auto) 0 % (0-3) Neutrophils # (Auto) 7.1 x10^3/uL (1.8-7.7) Lymphocytes # (Auto) 1.4 x10^3/uL (1.0-4.8) Monocytes # (Auto) 0.4 x10^3/uL (0.0-1.1) Eosinophils # (Auto) 0.0 x10^3/uL (0.0-0.7) Basophils # (Auto) 0.0 x10^3/uL (0.0-0.2) Prothrombin Time 12.8 SEC (11.7-14.0) Prothromb Time International Ratio 1.0 (0.8-1.1) Sodium Level 138 mmol/L (136-145) Potassium Level 4.6 mmol/L (3.5-5.1) Chloride Level 102 mmol/L (98-107) Carbon Dioxide Level 25 mmol/L (21-32) Anion Gap 11 (6-14) Blood Urea Nitrogen 11 mg/dL (7-20) Creatinine 1.0 mg/dL (0.6-1.0) Estimated GFR (Cockcroft-Gault) 57.6 BUN/Creatinine Ratio 11 (6-20) Glucose Level 358 mg/dL (70-99) Calcium Level 10.1 mg/dL (8.5-10.1) Total Bilirubin 0.6 mg/dL (0.2-1.0) Aspartate Amino Transf (AST/SGOT) 70 U/L (15-37) Alanine Aminotransferase (ALT/SGPT) 77 U/L (14-59) Alkaline Phosphatase 159 U/L (46-116) Troponin I Quantitative < 0.017 ng/mL (0.000-0.055) < 0.017 ng/mL (0.000-0.055) XZ-Rhx-M-Type Natriuretic Peptide 195 pg/mL (0-124) Total Protein 7.5 g/dL (6.4-8.2) Albumin 3.6 g/dL (3.4-5.0) Albumin/Globulin Ratio 0.9 (1.0-1.7) Urine Collection Type Void Urine Color Yellow Urine Clarity Clear Urine pH 5.0 Urine Specific [place] >=1.030 Urine Protein Negative mg/dL (NEG-TRACE) Urine Glucose (UA) >=1000 mg/dL (NEG) Urine Ketones (Stick) Trace mg/dL (NEG) Urine Blood Negative (NEG) Urine Nitrite Negative (NEG) Urine Bilirubin Negative (NEG) Urine Urobilinogen Dipstick 1.0 mg/dL (0.2 mg/dL) Urine Leukocyte Esterase Negative (NEG) Urine RBC 0 /HPF (0-2) Urine WBC 1-4 /HPF (0-4) Urine Squamous Epithelial Cells Few /LPF Urine Bacteria 0 /HPF (0-FEW) Urine Mucus Mod /LPF Urine Opiates Screen Neg (NEG) Urine Methadone Screen Neg (NEG) Urine Barbiturates Neg (NEG) Urine Phencyclidine Screen Neg (NEG) Urine Amphetamine/Methamphetamine Neg (NEG) Urine Benzodiazepines Screen Neg (NEG) Urine Cocaine Screen Neg (NEG) Urine Cannabinoids Screen Neg (NEG) Urine Ethyl Alcohol Neg (NEG) Glucose (Fingerstick) 266 mg/dL (70-99) Test 03/10/19 10:59 03/10/19 16:58 03/10/19 20:34 03/11/19 07:42 Glucose (Fingerstick) 205 mg/dL (70-99) 278 mg/dL (70-99) 216 mg/dL (70-99) 227 mg/dL (70-99) Laboratory Tests Test 03/10/19 10:59 03/10/19 16:58 03/10/19 20:34 03/11/19 07:42 Glucose (Fingerstick) 205 mg/dL (70-99) 278 mg/dL (70-99) 216 mg/dL (70-99) 227 mg/dL (70-99) Medications Current Medications Morphine Sulfate (Morphine Sulfate) 2 mg 1X ONCE IV ; Start 03/09/19 at 20:45; Stop 03/09/19 at 21:50; Status DC Ondansetron HCl (Zofran) 4 mg 1X ONCE IVP ; Start 03/09/19 at 20:45; Stop 03/09/19 at 21:50; Status DC Morphine Sulfate (Morphine Sulfate) 4 mg 1X ONCE IM Last administered on 03/09/19at 22:12; Start 03/09/19 at 22:00; Stop 03/09/19 at 22:01; Status DC Ondansetron HCl (Zofran Odt) 4 mg 1X ONCE PO Last administered on 03/09/19at 22:11; Start 03/09/19 at 22:00; Stop 03/09/19 at 22:01; Status DC Ondansetron HCl (Zofran) 4 mg PRN Q8HRS PRN IV NAUSEA/VOMITING; Start 03/09/19 at 22:30; Stop 03/10/19 at 22:29; Status DC Fentanyl Citrate (Fentanyl 2ml Vial) 50 mcg PRN Q1HR PRN IV PAIN Last administered on 03/10/19at 12:16; Start 03/09/19 at 22:30; Stop 03/10/19 at 22:29; Status DC Insulin Human Lispro (HumaLOG) 0-7 UNITS TIDWMEALS SQ Last administered on 03/11/19at 08:51; Start 03/10/19 at 08:00 Dextrose (Dextrose 50%-Water Syringe) 12.5 gm PRN Q15MIN PRN IV SEE COMMENTS; Start 03/10/19 at 02:30 Dextrose (Iv Dextrose 5%) 250 ml PRN Q15MIN PRN IV SEE COMMENTS; Start 03/10/19 at 02:30 Regadenoson (Lexiscan) 0.4 mg 1X ONCE IV Last administered on 03/10/19at 10:39; Start 03/10/19 at 10:15; Stop 03/10/19 at 10:16; Status DC Amlodipine Besylate (Norvasc) 5 mg DAILY PO Last administered on 03/11/19 08:44; Start 03/10/19 at 11:00 Clopidogrel Bisulfate (Plavix) 75 mg DAILY PO Last administered on 03/11/19 08:42; Start 03/10/19 at 11:00 Dabigatran (Pradaxa) 150 mg BID PO Last administered on 03/11/19 08:41; Start 03/10/19 at 11:00 Furosemide (Lasix) 20 mg BID92 PO Last administered on 03/11/19 08:40; Start 03/10/19 at 11:00 Gabapentin (Neurontin) 300 mg DAILY PO Last administered on 03/11/19 08:43; Start 03/10/19 at 11:00 Insulin Glargine (Lantus Syringe) 10 unit BID SQ Last administered on 03/11/19 08:52; Start 03/10/19 at 11:00 Isosorbide Mononitrate (Imdur) 30 mg DAILY PO Last administered on 03/11/19 08:41; Start 03/10/19 at 11:00 Levothyroxine Sodium (Synthroid) 125 mcg DAILY06 PO Last administered on 03/11/19 06:01; Start 03/10/19 at 11:00 Methocarbamol (Robaxin) 1,500 mg TID PO Last administered on 03/11/19 08:40; Start 03/10/19 at 14:00 Oxycodone HCl (Roxicodone) 10 mg PRN Q4HRS PRN PO PAIN Last administered on 03/11/19 08:43; Start 03/10/19 at 10:30 Duloxetine HCl (Cymbalta) 60 mg DAILY PO Last administered on 03/11/19 08:40; Start 03/10/19 at 11:00 Pantoprazole Sodium (Protonix) 40 mg BIDAC PO Last administered on 03/11/19 06:01; Start 03/10/19 at 11:00 Non-Formulary Medication (Fluticasone/ Salmeterol (Advair 250-50 Diskus)) 250 inhaler BID INH ; Start 03/10/19 at 21:00; Status UNV Metformin HCl (Glucophage) 1,000 mg BIDWMEALS PO Last administered on 03/11/19at 08:40; Start 03/10/19 at 11:00 Metoprolol Tartrate (Lopressor) 75 mg DAILY PO Last administered on 03/11/19at 08:42; Start 03/10/19 at 11:00 Atorvastatin Calcium (Lipitor) 40 mg QHS PO Last administered on 03/10/19at 20:58; Start 03/10/19 at 21:00 Albuterol Sulfate (Ventolin Neb Soln) 2.5 mg RTQID NEB Last administered on 03/11/19at 07:36; Start 03/10/19 at 12:00 Budesonide (Pulmicort) 0.5 mg RTBID NEB Last administered on 03/11/19at 07:36; Start 03/10/19 at 11:00 Morphine Sulfate (Morphine Sulfate) 2 mg PRN Q2HR PRN IV PAIN Last administered on 03/11/19at 06:05; Start 03/10/19 at 13:45 Ondansetron HCl (Zofran) 4 mg PRN Q8HRS PRN IVP NAUSEA/VOMITING; Start 03/11/19 at 06:00 Info (Anti-Coagulation Monitoring By Pharmacy) 1 each PRN DAILY PRN MC SEE COMMENTS; Start 03/11/19 at 08:15 Active Scripts Active Reported Amlodipine Besylate 5 Mg Tablet 5 Mg PO DAILY Metformin Hcl 1,000 Mg Tablet 1,000 Mg PO BID Gabapentin 300 Mg Capsule 300 Mg PO DAILY Isosorbide Mononitrate Er (Isosorbide Mononitrate) 30 Mg Tab.er.24h 1 Tab PO DAILY Esomeprazole Magnesium 40 Mg Capsule.dr 40 Mg PO BID Isosorbide Mononitrate Er (Isosorbide Mononitrate) 30 Mg Tab.er.24h 30 Mg PO DAILY Furosemide 20 Mg Tablet 20 Mg PO BID Methocarbamol 750 Mg Tablet 1,500 Mg PO TID Levothyroxine Sodium 125 Mcg Tablet 125 Mcg PO DAILY NITROGLYCERIN SubLingual (Nitroglycerin) 0.4 Mg Tab.subl 0.4 Mg SL PRN PRN Humalog Filiberto Kwikpen (Insulin Lispro) 100 Unit/1 Ml Ins.pen.hf 8 Units SQ TID Metoprolol Tartrate 75 Mg Tablet 75 Mg PO DAILY Pradaxa (Dabigatran Etexilate Mesylate) 150 Mg Capsule 150 Mg PO BID Victoza 2-Ivan (Liraglutide) 0.6 Mg/0.1 Ml Pen.injctr 2 Mg SQ DAILY Cymbalta (Duloxetine Hcl) 60 Mg Capsule.dr 60 Mg PO DAILY Lantus (Insulin Glargine,Hum.rec.anlog) 100 Unit/1 Ml Vial 10 Units SQ BID Advair 250-50 Diskus (Fluticasone/Salmeterol) 1 Each Disk.w.dev 250 INH BID Simvastatin 80 Mg Tablet 80 Mg PO HS Plavix (Clopidogrel Bisulfate) 75 Mg Tablet 75 Mg PO DAILY PRN Oxycodone HCl 5 Mg Tablet 10 Mg PO PRN Q4HRS PRN Vitals/I & O Vital Sign - Last 24 Hours 03/10/19 03/10/19 03/10/19 03/10/19 11:00 11:11 11:12 11:13 Pulse 82 75 76 75 Resp 18 B/P (MAP) 128/66 (86) 132/87 132/87 132/87 Pulse Ox 98 O2 Delivery Room Air 03/10/19 03/10/19 03/10/19 03/10/19 11:30 15:00 15:17 19:20 Temp 97.2 97.8 97.2 97.8 Pulse 66 74 Resp 18 18 B/P (MAP) 138/65 (89) 135/60 (85) Pulse Ox 98 98 98 98 O2 Delivery Room Air Room Air Room Air Room Air 03/10/19 03/10/19 03/10/19 03/10/19 19:51 20:47 21:03 21:33 Resp 18 16 Pulse Ox 97 97 97 O2 Delivery Room Air Room Air Room Air Room Air 03/10/19 03/10/19 03/11/19 03/11/19 22:45 23:51 00:21 03:10 Temp 97.7 97.9 97.7 97.9 Pulse 73 78 Resp 20 16 16 18 B/P (MAP) 128/58 (81) 136/63 (87) Pulse Ox 97 97 97 98 O2 Delivery Room Air Room Air Room Air Room Air 03/11/19 03/11/19 03/11/19 03/11/19 03:25 03:55 06:05 07:00 Temp 97.7 97.7 Pulse 77 Resp 16 16 16 20 B/P (MAP) 143/72 (95) Pulse Ox 97 97 97 100 O2 Delivery Room Air Room Air Room Air Room Air 03/11/19 03/11/19 03/11/19 03/11/19 07:36 08:41 08:42 08:43 Pulse 89 77 B/P (MAP) 143/72 O2 Delivery Room Air Room Air 03/11/19 03/11/19 03/11/19 08:44 08:52 09:43 Pulse 77 B/P (MAP) 143/72 O2 Delivery Room Air Room Air Intake and Output 03/10/19 03/10/19 03/11/19 15:00 23:00 07:00 Intake Total 220 ml 760 ml Output Total 900 ml Balance 220 ml -140 ml CAMILLE FERRARO MD Mar 11, 2019 10:16
[2019-03-11 11:00] VITALS: BP 117/67
--- NOTE | 2019-03-11 12:23 | PDOC3 ---
Discharge Summary Date of Admission: Mar 10, 2019 Date of Discharge: Mar 11, 2019 Follow-Up: 3-5 days Admitting Diagnosis comment: History of Present Illness DISCHARGE DX ANGINA in a middle-aged female who has known coronary artery disease and previous stents x 7. LOW RISK MPI Gallbladder sludge. by US WITH ruq pain, persistent Increased hepatic echotexture, may indicate steatosis. MORBID OBESITY admitted. cardiac monitoring, serial enzymes, serial EKGs, echocardiogram, consult Cardiology. Home meds, deep venous thrombosis prophylaxis. Full code. P.r.n. nitroglycerin, p.r.n. morphine. D/W RN MPI 03/10 // unremarkable //june DC. from cardiology standpoint see GEN SURGERY OUT PT KARLENE D/C PLANNING 32 MIN Vitals Vitals Vital Signs Date Time Temp Pulse Resp B/P (MAP) Pulse Ox O2 Delivery O2 Flow Rate FiO2 03/11/19 09:43 Room Air 03/11/19 08:44 77 143/72 03/11/19 07:00 97.7 20 100 97.7 Physical Exam General: Alert, Oriented X3, Cooperative, No acute distress Heart: Regular rate (SR), Normal S1, Normal S2, No murmurs Lungs: Clear Abdomen: Normal bowel sounds, Soft, No tenderness Extremities: No cyanosis, No edema Skin: No breakdown, No significant lesion Labs LABS ABDOMEN LTD History: Abdominal pain. Evaluate for gallstones. Comparison: CT July 14, 2014. Technique: Transabdominal ultrasound images are obtained of the right upper quadrant. Findings: Visualized pancreas is not well seen due to overlying bowel gas. Liver is increased in echogenicity. Right hepatic lobe measures 16.9 cm. Portal flow is hepatopedal. The bladder sludge. No cholelithiasis. No gallbladder wall thickening. No pericholecystic fluid. Common bile duct measures 4 mm in diameter. The right kidney measures 9.2 x 4.4 x 4.2 cm. No hydronephrosis. Visualized portions of the aorta and IVC have normal caliber. IMPRESSION: 1. Gallbladder sludge. 2. Increased hepatic echotexture, may indicate steatosis. Electronically signed by: Nura Dunaway DO (03/10/2019 7:17 PM) [id number] DICTATED and SIGNED BY: NURA DUNAWAY DO DATE: 03/10/191916 Rest: Stress: Viability: Radiopharm. Tc99m Sestamibi Dose 12mCi Img Date 03/10/2019 Inj-Img Time 45min. Stress Admin Site: rt breast [employer] Teacher: William Caceres RT (R)(N) STRESS DATA End Diast. Vol. 50.0ml Av. Heart Rate 65.0bpm End Syst. Vol. 17.0ml CO Index BSA 0.0L/min Myocardial Mass 104.0g Eject. Fraction 66.0% Stress Rates Pk. Fill Rate 1.95EDV/sec LVtime Pk. Fill 167.45msec Pk. Empty Rate 3.16ESV/sec LVtime Pk. Eject 175.22msec 1/3 Pk. Fill 1.12EDV/sec Stress Scores Regional WT 1.00 Summed WT 5.00 Regional WM 2.00 Summed WM 12.00 LV Perfusion Normal perfusion at stress Wall Motion Normal wall motion with stress. LV Perf. Quant 17 Seg. SSS 0.00 Stress Defect Extent (% LAD) 0.00 Rest Defect Extent (% LAD) Rev. Defect Extent (% LAD) 0.00 Stress Defect Extent (% LCX) 0.00 Rest Defect Extent (% LCX) Rev. Defect Extent (% LCX) 0.00 Stress Defect Extent (% RCA) 0.00 Rest Defect Extent (% RCA) Rev. Defect Extent (% RCA) 0.00 Stress Defect Extent (% LUIGI) 0.00 Rest Defect Extent (% LUIGI) Rev. Defect Extent (% LUIGI) 0.00 Other Information Quality:Fair Risk Assessment: Low Risk Conclusion 1. No evidence of EKG changes with stress testing. 2. Normal perfusion at stress. 3. Low risk study. 4. EF > 60%. Signed by : Steve Gudino, Electronically Approved : 03/10/2019 12:53:26 FINAL DIAGNOSIS Problems Medical Problems: (1) Chest pain Status: Acute Brief Hospital Course Ms. Crooks is a 53 old [sex] who presented with [ ANGINA, RUQ PAIN] CONDITION AT DISCHARGE: Improved Discharge Medications Current Medications Morphine Sulfate (Morphine Sulfate) 2 mg 1X ONCE IV ; Start 03/09/19 at 20:45; Stop 03/09/19 at 21:50; Status DC Ondansetron HCl (Zofran) 4 mg 1X ONCE IVP ; Start 03/09/19 at 20:45; Stop 03/09/19 at 21:50; Status DC Morphine Sulfate (Morphine Sulfate) 4 mg 1X ONCE IM Last administered on 03/09/19at 22:12; Start 03/09/19 at 22:00; Stop 03/09/19 at 22:01; Status DC Ondansetron HCl (Zofran Odt) 4 mg 1X ONCE PO Last administered on 03/09/19at 22:11; Start 03/09/19 at 22:00; Stop 03/09/19 at 22:01; Status DC Ondansetron HCl (Zofran) 4 mg PRN Q8HRS PRN IV NAUSEA/VOMITING; Start 03/09/19 at 22:30; Stop 03/10/19 at 22:29; Status DC Fentanyl Citrate (Fentanyl 2ml Vial) 50 mcg PRN Q1HR PRN IV PAIN Last administered on 03/10/19at 12:16; Start 03/09/19 at 22:30; Stop 03/10/19 at 22:29; Status DC Insulin Human Lispro (HumaLOG) 0-7 UNITS TIDWMEALS SQ Last administered on 02/12 10/31at 08:51; Start 03/10/19 at 08:00 Dextrose (Dextrose 50%-Water Syringe) 12.5 gm PRN Q15MIN PRN IV SEE COMMENTS; Start 03/10/19 at 02:30 Dextrose (Iv Dextrose 5%) 250 ml PRN Q15MIN PRN IV SEE COMMENTS; Start 03/10/19 at 02:30 Regadenoson (Lexiscan) 0.4 mg 1X ONCE IV Last administered on 03/10/19at 10:39; Start 03/10/19 at 10:15; Stop 03/10/19 at 10:16; Status DC Amlodipine Besylate (Norvasc) 5 mg DAILY PO Last administered on 03/11/19at 08:44; Start 03/10/19 at 11:00 Clopidogrel Bisulfate (Plavix) 75 mg DAILY PO Last administered on 03/11/19at 08:42; Start 03/10/19 at 11:00 Dabigatran (Pradaxa) 150 mg BID PO Last administered on 03/11/19at 08:41; Start 03/10/19 at 11:00 Furosemide (Lasix) 20 mg BID92 PO Last administered on 03/11/19 08:40; Start 03/10/19 at 11:00 Gabapentin (Neurontin) 300 mg DAILY PO Last administered on 03/11/19 08:43; Start 03/10/19 at 11:00 Insulin Glargine (Lantus Syringe) 10 unit BID SQ Last administered on 03/11/19 08:52; Start 03/10/19 at 11:00 Isosorbide Mononitrate (Imdur) 30 mg DAILY PO Last administered on 03/11/19 08:41; Start 03/10/19 at 11:00 Levothyroxine Sodium (Synthroid) 125 mcg DAILY06 PO Last administered on 03/11/19 06:01; Start 03/10/19 at 11:00 Methocarbamol (Robaxin) 1,500 mg TID PO Last administered on 03/11/19 08:40; Start 03/10/19 at 14:00 Oxycodone HCl (Roxicodone) 10 mg PRN Q4HRS PRN PO PAIN Last administered on 03/11/19 08:43; Start 03/10/19 at 10:30 Duloxetine HCl (Cymbalta) 60 mg DAILY PO Last administered on 03/11/19 08:40; Start 03/10/19 at 11:00 Pantoprazole Sodium (Protonix) 40 mg BIDAC PO Last administered on 03/11/19 06:01; Start 03/10/19 at 11:00 Non-Formulary Medication (Fluticasone/ Salmeterol (Advair 250-50 Diskus)) 250 inhaler BID INH ; Start 03/10/19 at 21:00; Status UNV Metformin HCl (Glucophage) 1,000 mg BIDWMEALS PO Last administered on 03/11/19 08:40; Start 03/10/19 at 11:00 Metoprolol Tartrate (Lopressor) 75 mg DAILY PO Last administered on 03/11/19 08:42; Start 03/10/19 at 11:00 Atorvastatin Calcium (Lipitor) 40 mg QHS PO Last administered on 03/10/19 20:58; Start 03/10/19 at 21:00 Albuterol Sulfate (Ventolin Neb Soln) 2.5 mg RTQID NEB Last administered on 03/11/19at 11:47; Start 03/10/19 at 12:00 Budesonide (Pulmicort) 0.5 mg RTBID NEB Last administered on 03/11/19at 07:36; Start 03/10/19 at 11:00 Morphine Sulfate (Morphine Sulfate) 2 mg PRN Q2HR PRN IV PAIN Last administered on 03/11/19at 10:27; Start 03/10/19 at 13:45 Ondansetron HCl (Zofran) 4 mg PRN Q8HRS PRN IVP NAUSEA/VOMITING; Start 03/11/19 at 06:00 Info (Anti-Coagulation Monitoring By Pharmacy) 1 each PRN DAILY PRN MC SEE COMMENTS Last administered on 03/11/19at 10:12; Start 03/11/19 at 08:15 Active Scripts Active Reported Amlodipine Besylate 5 Mg Tablet 5 Mg PO DAILY Metformin Hcl 1,000 Mg Tablet 1,000 Mg PO BID Gabapentin 300 Mg Capsule 300 Mg PO DAILY Isosorbide Mononitrate Er (Isosorbide Mononitrate) 30 Mg Tab.er.24h 1 Tab PO DAILY Esomeprazole Magnesium 40 Mg Capsule.dr 40 Mg PO BID Isosorbide Mononitrate Er (Isosorbide Mononitrate) 30 Mg Tab.er.24h 30 Mg PO DAILY Furosemide 20 Mg Tablet 20 Mg PO BID Methocarbamol 750 Mg Tablet 1,500 Mg PO TID Levothyroxine Sodium 125 Mcg Tablet 125 Mcg PO DAILY NITROGLYCERIN SubLingual (Nitroglycerin) 0.4 Mg Tab.subl 0.4 Mg SL PRN PRN Humalog Filiberto Kwikpen (Insulin Lispro) 100 Unit/1 Ml Ins.pen.hf 8 Units SQ TID Metoprolol Tartrate 75 Mg Tablet 75 Mg PO DAILY Pradaxa (Dabigatran Etexilate Mesylate) 150 Mg Capsule 150 Mg PO BID Victoza 2-Ivan (Liraglutide) 0.6 Mg/0.1 Ml Pen.injctr 2 Mg SQ DAILY Cymbalta (Duloxetine Hcl) 60 Mg Capsule.dr 60 Mg PO DAILY Lantus (Insulin Glargine,Hum.rec.anlog) 100 Unit/1 Ml Vial 10 Units SQ BID Advair 250-50 Diskus (Fluticasone/Salmeterol) 1 Each Disk.w.dev 250 INH BID Simvastatin 80 Mg Tablet 80 Mg PO HS Plavix (Clopidogrel Bisulfate) 75 Mg Tablet 75 Mg PO DAILY PRN Oxycodone HCl 5 Mg Tablet 10 Mg PO PRN Q4HRS PRN Vital Signs Vital Signs Date Time Temp Pulse Resp B/P (MAP) Pulse Ox O2 Delivery O2 Flow Rate FiO2 03/11/19 11:47 Room Air 03/11/19 11:00 97.4 60 20 117/67 (84) 94 97.4 Labs Laboratory Tests Test 03/09/19 20:55 03/09/19 22:20 03/10/19 01:25 03/10/19 08:00 White Blood Count 8.9 x10^3/uL (4.0-11.0) Red Blood Count 4.46 x10^6/uL (3.50-5.40) Hemoglobin 14.8 g/dL (12.0-15.5) Hematocrit 43.5 % (36.0-47.0) Mean Corpuscular Volume 98 fL (79-100) Mean Corpuscular Hemoglobin 33 pg (25-35) Mean Corpuscular Hemoglobin Concent 34 g/dL (31-37) Red Cell Distribution Width 14.8 % (11.5-14.5) Platelet Count 151 x10^3/uL (140-400) Neutrophils (%) (Auto) 79 % (31-73) Lymphocytes (%) (Auto) 15 % (24-48) Monocytes (%) (Auto) 5 % (0-9) Eosinophils (%) (Auto) 1 % (0-3) Basophils (%) (Auto) 0 % (0-3) Neutrophils # (Auto) 7.1 x10^3/uL (1.8-7.7) Lymphocytes # (Auto) 1.4 x10^3/uL (1.0-4.8) Monocytes # (Auto) 0.4 x10^3/uL (0.0-1.1) Eosinophils # (Auto) 0.0 x10^3/uL (0.0-0.7) Basophils # (Auto) 0.0 x10^3/uL (0.0-0.2) Prothrombin Time 12.8 SEC (11.7-14.0) Prothromb Time International Ratio 1.0 (0.8-1.1) Sodium Level 138 mmol/L (136-145) Potassium Level 4.6 mmol/L (3.5-5.1) Chloride Level 102 mmol/L (98-107) Carbon Dioxide Level 25 mmol/L (21-32) Anion Gap 11 (6-14) Blood Urea Nitrogen 11 mg/dL (7-20) Creatinine 1.0 mg/dL (0.6-1.0) Estimated GFR (Cockcroft-Gault) 57.6 BUN/Creatinine Ratio 11 (6-20) Glucose Level 358 mg/dL (70-99) Calcium Level 10.1 mg/dL (8.5-10.1) Total Bilirubin 0.6 mg/dL (0.2-1.0) Aspartate Amino Transf (AST/SGOT) 70 U/L (15-37) Alanine Aminotransferase (ALT/SGPT) 77 U/L (14-59) Alkaline Phosphatase 159 U/L (46-116) Troponin I Quantitative < 0.017 ng/mL (0.000-0.055) < 0.017 ng/mL (0.000-0.055) QR-Ohw-P-Type Natriuretic Peptide 195 pg/mL (0-124) Total Protein 7.5 g/dL (6.4-8.2) Albumin 3.6 g/dL (3.4-5.0) Albumin/Globulin Ratio 0.9 (1.0-1.7) Urine Collection Type Void Urine Color Yellow Urine Clarity Clear Urine pH 5.0 Urine Specific Matthews >=1.030 Urine Protein Negative mg/dL (NEG-TRACE) Urine Glucose (UA) >=1000 mg/dL (NEG) Urine Ketones (Stick) Trace mg/dL (NEG) Urine Blood Negative (NEG) Urine Nitrite Negative (NEG) Urine Bilirubin Negative (NEG) Urine Urobilinogen Dipstick 1.0 mg/dL (0.2 mg/dL) Urine Leukocyte Esterase Negative (NEG) Urine RBC 0 /HPF (0-2) Urine WBC 1-4 /HPF (0-4) Urine Squamous Epithelial Cells Few /LPF Urine Bacteria 0 /HPF (0-FEW) Urine Mucus Mod /LPF Urine Opiates Screen Neg (NEG) Urine Methadone Screen Neg (NEG) Urine Barbiturates Neg (NEG) Urine Phencyclidine Screen Neg (NEG) Urine Amphetamine/Methamphetamine Neg (NEG) Urine Benzodiazepines Screen Neg (NEG) Urine Cocaine Screen Neg (NEG) Urine Cannabinoids Screen Neg (NEG) Urine Ethyl Alcohol Neg (NEG) Glucose (Fingerstick) 266 mg/dL (70-99) Test 03/10/19 10:59 03/10/19 16:58 03/10/19 20:34 03/11/19 07:42 Glucose (Fingerstick) 205 mg/dL (70-99) 278 mg/dL (70-99) 216 mg/dL (70-99) 227 mg/dL (70-99) Test 03/11/19 12:13 Glucose (Fingerstick) 187 mg/dL (70-99) Laboratory Tests Test 03/10/19 16:58 03/10/19 20:34 03/11/19 07:42 03/11/19 12:13 Glucose (Fingerstick) 278 mg/dL (70-99) 216 mg/dL (70-99) 227 mg/dL (70-99) 187 mg/dL (70-99) Allergies Allergies Coded Allergies Type Severity Reaction Last Updated Verified Tetracyclines Allergy Intermediate 10/01/13 No ketorolac Allergy Intermediate 10/01/13 No tramadol Allergy Intermediate 10/01/13 No Disposition/Orders: D/C to Home CAMILLE FERRARO MD Mar 11, 2019 12:23
[2019-03-11] MEDS ORDERED: ALBU2.5V8 NEB (12:25)
--- NOTE | 2019-03-11 12:26 | DISCH ---
DISCHARGE INSTRUCTIONS Condition on Discharge Condition on Discharge: Stable Activity After Discharge Activity Instructions for Disc: Activity as tolerated Lifting Instructions after Dis: No heavy lifting, No pulling or pushing Driving Instructions after Dis: Do not drive Diet after Discharge Diet after Discharge: Low Fat, Diabetic No Calorie Level Checks after Discharge Checks after discharge: Check blood press - daily Contacting the DRBarbara after DC Call your doctor for: If your condition worsens Warfarin Follow-Up Warfarin Follow UP: SEE SURGERY KARLENE CAMILLE FERRARO MD Mar 11, 2019 12:26
[2019-03-11 15:00] VITALS: BP 157/73
--- NOTE | 2019-03-11 18:25 | NUR ---
Discharge Note: DOMINICK HURLEY [address] Discharge instructions and discharge home medications reviewed with Patient and a copy given. All questions have been answered and understanding verbalized. The following instructions and handouts were given: medication list, discharge instructions Discontinued lines and drains: peripheral IV, dressing clean, dry and intact. Patient discharged to home with self via cab.
== END 2019-03-11 17:45 | disposition home or self-care (01) | DRG 303 ==
LOC: ER 20:26 → 2 SOUTH 21:57
PROVIDERS: ADMIT Internal Medicine; ATTEND Internal Medicine
DX: I25.119 Atherosclerotic heart disease of native coronary artery with unspecified angina pectoris (principal); K82.8 Other specified diseases of gallbladder; E11.9 Type 2 diabetes mellitus without complications; E03.9 Hypothyroidism, unspecified; E66.01 Morbid (severe) obesity due to excess calories; E88.89 Other specified metabolic disorders; E78.00 Pure hypercholesterolemia, unspecified; E78.5 Hyperlipidemia, unspecified; F17.210 Nicotine dependence, cigarettes, uncomplicated; F43.10 Post-traumatic stress disorder, unspecified; I11.0 Hypertensive heart disease with heart failure; I25.2 Old myocardial infarction; I50.9 Heart failure, unspecified; J45.909 Unspecified asthma, uncomplicated; M32.9 Systemic lupus erythematosus, unspecified; Z79.01 Long term (current) use of anticoagulants; Z82.49 Family history of ischemic heart disease and other diseases of the circulatory system; Z85.3 Personal history of malignant neoplasm of breast; Z86.711 Personal history of pulmonary embolism; Z86.73 Personal history of transient ischemic attack (TIA), and cerebral infarction without residual deficits; Z87.11 Personal history of peptic ulcer disease; Z90.710 Acquired absence of both cervix and uterus; Z95.5 Presence of coronary angioplasty implant and graft; K21.9 Gastro-esophageal reflux disease without esophagitis; M19.90 Unspecified osteoarthritis, unspecified site; Z68.39 Body mass index [BMI] 39.0-39.9, adult; Z71.6 Tobacco abuse counseling; Z88.8 Allergy status to other drugs, medicaments and biological substances
CPT/HCPCS: 36415; 71046; 76705; 78452; 80053; 80307; 81001; 82962; 83880; 84484; 85025; 85610; 93005; 93017; 94640; 94760; 96372; 96374; 96375; 96376; A9500; J1815; J2270; J2785; J3010; J7613; J7626; Q0162; 99285-25; G0378